=== PATIENT | male | born 2000 ===

== ENCOUNTER 2022-01-06 03:02 | Emergency (ER) | payer SELFPAY ==
[2022-01-06] MEDS ORDERED: IBUPROFEN 600 MG TAB PO ONE (05:05)
[2022-01-06] MEDS ORDERED: ACETAMINOPHEN 500 MG TAB PO ONE (05:05)
[2022-01-06] MEDS ORDERED: CYCLOBENZAPRINE 10 MG TAB PO ONE (05:06)
--- NOTE | 2022-01-06 05:20 | Emergency Department Report ---
ED General Adult HPI - General Chief complaint: Pain General Stated complaint: TIRED Source: patient, EMS Mode of arrival: Stretcher Limitations: No Limitations - History of Present Illness Initial comments: Patient is a 21-year-old male with no past medical history history presents to the ED with complaint of acute onset persistent nontraumatic bilateral lower extremity pain for the last 7 days. Patient states that he has been walking on food from [place] for the last 7 days and now feels bilateral foot, ankle, knee and hip pain. Patient denies dizziness, syncope, fall, traumatic injury, nausea and vomiting or dysuria, hematuria, chest pain or shortness of breath. MD Complaint: bilateral lower extremity pain -: Gradual, days(s) (7) Location: lower extremity (bilaterally) Radiation: extremity (bilateral lower extremities) Severity scale (0 -10): 8 Quality: aching, sharp Consistency: constant Improves with: none Worsens with: movement Associated Symptoms: denies: confusion, chest pain, cough, fever/chills, headaches, loss of appetite, malaise, nausea/vomiting, rash, shortness of breath, syncope, weakness Treatments Prior to Arrival: none - Related Data Previous Rx's Medication Instructions Recorded Last Taken Type Cyclobenzaprine [Flexeril] 10 mg PO Q8H PRN #15 tab 01/06/22 Unknown Rx Ibuprofen [Motrin] 800 mg PO Q8HR PRN #30 tablet 01/06/22 Unknown Rx Allergies Allergy/AdvReac Type Severity Reaction Status Date / Time Penicillins Allergy Hives Verified 01/06/22 03:17 ED Review of Systems ROS: Stated complaint: TIRED Other details as noted in HPI Constitutional: denies: chills, fever Eyes: denies: eye pain, eye discharge, vision change ENT: denies: ear pain, throat pain, congestion Respiratory: denies: cough, shortness of breath, wheezing Cardiovascular: denies: chest pain, palpitations Endocrine: no symptoms reported Gastrointestinal: denies: abdominal pain, nausea, vomiting, diarrhea Genitourinary: denies: urgency, dysuria Musculoskeletal: arthralgia (bilateral lower extremity pain). denies: back pain, joint swelling, myalgia Skin: denies: rash, lesions Neurological: denies: headache, weakness, paresthesias Psychiatric: denies: anxiety, depression Hematological/Lymphatic: denies: easy bleeding, easy bruising ED Past Medical Hx - Past Medical History Previous Medical History?: No - Surgical History Past Surgical History?: No - Social History Smoking Status: Former Smoker Substance Use Type: None - Medications Home Medications: Home Medications Medication Instructions Recorded Confirmed Last Taken Type Cyclobenzaprine [Flexeril] 10 mg PO Q8H PRN #15 tab 01/06/22 Unknown Rx Ibuprofen [Motrin] 800 mg PO Q8HR PRN #30 tablet 01/06/22 Unknown Rx ED Physical Exam - General Limitations: No Limitations General appearance: alert, in no apparent distress - Head Head exam: Present: atraumatic, normocephalic, normal inspection - Eye Eye exam: Present: normal appearance, PERRL, EOMI Pupils: Present: normal accommodation - ENT ENT exam: Present: normal exam, normal orophraynx, mucous membranes moist, TM's normal bilaterally, normal external ear exam - Neck Neck exam: Present: normal inspection, full ROM. Absent: tenderness - Respiratory Respiratory exam: Present: normal lung sounds bilaterally. Absent: respiratory distress, wheezes, rales, rhonchi, stridor, chest wall tenderness, accessory muscle use, decreased breath sounds, prolonged expiratory - Cardiovascular Cardiovascular Exam: Present: regular rate, normal rhythm, normal heart sounds. Absent: systolic murmur, diastolic murmur, rubs, gallop - GI/Abdominal GI/Abdominal exam: Present: soft, normal bowel sounds. Absent: tenderness, guarding, rebound, rigid, hyperactive bowel sounds, hypoactive bowel sounds, organomegaly - Extremities Exam Extremities exam: Present: normal inspection, full ROM, tenderness (Palpable bilateral hip, knee, ankle and foot tenderness), normal capillary refill. Absent: pedal edema, joint swelling, calf tenderness - Back Exam Back exam: Present: normal inspection, full ROM. Absent: tenderness, CVA tenderness (R), CVA tenderness (L), muscle spasm, paraspinal tenderness, vertebral tenderness, rash noted - Neurological Exam Neurological exam: Present: alert, oriented X3, CN II-XII intact, normal gait, reflexes normal - Psychiatric Psychiatric exam: Present: normal affect, normal mood - Skin Skin exam: Present: warm, dry, intact, normal color. Absent: rash ED Course Vital Signs 01/06/22 03:03 Temperature 98.6 F Pulse Rate 70 Respiratory 18 Rate Blood Pressure 102/62 O2 Sat by Pulse 100 Oximetry ED Medical Decision Making - Medical Decision Making This is a 21-year-old male with no past medical history history presents to the ED with complaint of acute onset persistent nontraumatic bilateral lower extremity pain for the last 7 days. Patient states that he has been walking on food from [place] for the last 7 days and now feels bilateral foot, ankle, knee and hip pain. In the ED, patient is alert and oriented x3 and is not in any distress. Patient was treated for pain and discharged home on medications. Patient was discharged home and advised to follow-up with his primary care physician in 7 to 10 days for reevaluation. Patient is advised return to the ED immediately if symptoms get worse. - Differential Diagnosis Muscle strain; muscle spasm; Critical care attestation.: If time is entered above; I have spent that time in minutes in the direct care of this critically ill patient, excluding procedure time. ED Disposition Clinical Impression: Muscle spasm of both lower legs Muscle strain of lower extremity Qualifiers: Encounter type: initial encounter Laterality: unspecified laterality Qualified Code(s): S86.919A - Strain of unspecified muscle(s) and tendon(s) at lower leg level, unspecified leg, initial encounter Disposition: 01 HOME / SELF CARE / HOMELESS Is pt being admited?: No Does the pt Need Aspirin: No Condition: Stable Instructions: Muscle Cramps and Spasms, [id number], Muscle Strain, [id number] Additional Instructions: Your your symptoms are likely musculoskeletal due to muscle strain and muscle spasm. Therefore take medications as needed for pain, drink plenty of fluids and follow-up with your primary care physician in 7 to 10 days for reevaluation. Return to the ED immediately if symptoms get worse. Prescriptions: Cyclobenzaprine [Flexeril] 10 mg PO Q8H PRN #15 tab PRN Reason: Muscle Spasm Ibuprofen [Motrin] 800 mg PO Q8HR PRN #30 tablet PRN Reason: Pain , Severe (7-10) Referrals: [facility] [Provider Group] - 7-10 days Time of Disposition: 05:20 Print Language: PALAUAN
[2022-01-06] MEDS ORDERED: ALBUTEROL 2.5 MG/3 ML NEBU IH ONE (05:42)
[2022-01-06] MEDS ORDERED: IPRATROPIUM 0.02% NEBU 2.5 ML IH ONE (05:42)
[2022-01-06 06:21] VITALS: BP 122/72
== END 2022-01-06 06:22 | disposition home or self-care (01) ==
LOC: ED 03:02
DX: S86.911A Strain of unspecified muscle(s) and tendon(s) at lower leg level, right leg, initial encounter (principal); S86.912A Strain of unspecified muscle(s) and tendon(s) at lower leg level, left leg, initial encounter; Z87.891 Personal history of nicotine dependence; Z88.0 Allergy status to penicillin; Z79.899 Other long term (current) drug therapy; X58.XXXA Exposure to other specified factors, initial encounter; Y93.89 Activity, other specified; Y92.89 Other specified places as the place of occurrence of the external cause; Y99.8 Other external cause status
CPT/HCPCS: 99283